=== PATIENT | female | born 1980 | race Hispanic/Latino ===

== ENCOUNTER 2022-11-19 15:15 | Emergency (ER) | payer OTHER ==
--- NOTE | 2022-11-19 16:47 | RAD REPORT ---
EXAM DESCRIPTION: Tashi Single View11/19/2022 4:23 pm CLINICAL HISTORY: Chest pain COMPARISON: No comparisons TECHNIQUE: Portable AP view of the chest. FINDINGS: The lungs are clear. No pneumothorax or effusion. The cardiomediastinal contours are unrem arkable. IMPRESSION: No acute cardiopulmonary process.
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
[2022-11-19] MEDS ORDERED: IBUPROFEN 400 MG TAB ONE (18:10)
[2022-11-19 19:16] VITALS: BP 150/100; TEMP 98.6; O2SAT 99
== END 2022-11-19 18:21 | disposition home or self-care (01) ==
LOC: ER 15:15
DX: M79.602 Pain in left arm (principal); R07.9 Chest pain, unspecified; V49.50XA Passenger injured in collision with unspecified motor vehicles in traffic accident, initial encounter; I10 Essential (primary) hypertension
CPT/HCPCS: 71045; 99283